=== PATIENT | female | born 1960 | race Caucasian/White ===

== ENCOUNTER 2019-06-03 12:37 | Emergency (ER) | payer MEDICARE, MEDICAID ==
[~2019-06-03] VITALS: Ht 167.6 cm; Wt 80.0 kg
[~2019-06-03 12:37] MED LIST: AMPH15TA2 PO; FLUO20CA39 PO; LORA1TAB PO; MELO-82 PO; TOBOO OP; TRAZ-91 PO
--- NOTE | 2019-06-03 14:00 | NUR ---
pt resting in bed. belonging done, labs and ua sent. med rec completed. pt was at rehab 3 days ago left [place] [facility] she verbalized wanting to harm himself. pt transported to [facility] where she was placed on a 5150. ems than delievered the patient to overflow
--- NOTE | 2019-06-03 14:11 | NUR ---
pt. requested an emesis bag, spit up saliva and is coughing, but no vomiting. bilingual social worker is at bedside.
--- NOTE | 2019-06-03 14:11 | NUR ---
Tyrone robertson in ED - 06/03/19 at 1559 by JIGNESHLIC pt. requested an emesis bag, spit up saliva and is coughing, but no vomiting. renal social worker is at bedside.
[2019-06-03 14:31] LABS: CLARITY,URINE SLIGHTLY CLOUDY (Clear); COLOR,URINE YELLOW (Yellow); GLUCOSE, URINE NEGATIVE (Neg); KETONES,URINE NEGATIVE (Neg); LEUKOCYTE ESTERASE ,URINE NEGATIVE (Neg); NITRITES, URINE NEGATIVE (Neg); OCCULT BLOOD,URINE TRACE-INTACT (Neg); PROTEIN,URINE NEGATIVE (Neg); URINE HCG NEGATIVE (NEG); UROBILINOGEN,URINE 0.2 E.U/dL (0.2-1.0)
[2019-06-03 14:33] LABS: UA COLLECTION TYPE CLN CATCH MIDSTREAM
[2019-06-03 14:38] LABS: URINE AMPHETAMINE SCREEN POSITIVE (Neg); URINE BARBITUATE SCREEN NEGATIVE (Neg); URINE BENZODIAZEPINES SCREEN NEGATIVE (Neg); URINE CANNABINOID SCREEN POSITIVE (Neg); URINE COCAINE SCREEN NEGATIVE (Neg); URINE METHADONE SCREEN NEGATIVE (Neg); URINE OPIATE SCREEN NEGATIVE (Neg); URINE PHENCYCLIDINE SCREEN NEGATIVE (Neg)
[2019-06-03 14:41] LABS: MUCUS STRANDS MODERATE /LPF (Neg); SQUAMOUS EPITHELIAL CELL,UR MANY /LPF (FEW)
[2019-06-03 14:42] LABS: CAL OXALATE CRYSTALS 4+ /HPF (NEGATIVE)
[2019-06-03 14:43] LABS: BACTERIA,URINE 1+ /HPF (Neg); RBC,URINE 0-2 /HPF (0-2); WBC,URINE 0-4 /HPF (0-4)
[2019-06-03 14:44] LABS: YEAST FEW /HPF (NEGATIVE)
[2019-06-03 14:54] LABS: BASOPHILS % (AUTO) 0.8 % (0-1); EOSINOPHILS # (AUTO) 0.1 X10'3 (0-0.9); EOSINOPHILS % (AUTO) 2.5 % (0-6); HEMATOCRIT 41.7 % (35.0-45.0); HEMOGLOBIN 14.2 g/dl (12.0-16.0); LYMPHOCYTES # (AUTO) 2.4 X10'3 (1.1-4.8); LYMPHOCYTES % (AUTO) 49.2 % (21-51); MEAN CORPUSCULAR HEMOGLOBIN 30.4 PG (27.0-31.0); MEAN CORPUSCULAR VOLUME 89.5 FL (78-98); MONOCYTES # (AUTO) 0.3 X10'3 (0-0.9); MONOCYTES % (AUTO) 6.5 % (2-12); PLATELET COUNT 174 X10'3 (140-440); RED BLOOD COUNT 4.66 X10'6 (4.20-5.60); RED CELL DISTRIBUTION WIDTH 13.5 % (11.5-14.5); WHITE BLOOD COUNT 4.8 X10'3 (4.5-11.0)
--- NOTE | 2019-06-03 15:00 | NUR ---
pt resting in bed
[2019-06-03 15:09] LABS: ALANINE AMINOTRANSFERASE 27 U/L (12-78); ALBUMIN 3.1 G/DL (3.4-5.0); ALBUMIN/GLOBULIN RATIO 0.9 (1.1-1.5); ALKALINE PHOSPHATASE 140 IU/L (46-116); ANION GAP 6 (8-16); ASPARTATE AMINO TRANSFERASE 18 U/L (10-37); BILIRUBIN,TOTAL 0.2 MG/DL (0.1-1.0); BLOOD UREA NITROGEN 16 MG/DL (7-18); BUN/CREATININE RATIO 15.5 (6.6-38.0); CALCIUM 8.6 MG/DL (8.5-10.1); CHLORIDE 106 MMOL/L (99-107); CREATININE 1.03 MG/DL (0.40-0.90); GLUCOSE 178 MG/DL (70-104); POTASSIUM 3.2 MMOL/L (3.5-5.1); SODIUM 144 MMOL/L (135-145); TOTAL PROTEIN 6.6 G/DL (6.4-8.2); eGFR 55 ML/MIN
[2019-06-03] MEDS ORDERED: LORA10TA7 PO (15:17)
[2019-06-03] MEDS ORDERED: ATOM25CA6 PO (15:17)
[2019-06-03] MEDS ORDERED: BACL20TA2 PO (15:17)
[2019-06-03] MEDS ORDERED: MELO-102 PO (15:17)
[2019-06-03] MEDS ORDERED: HYDR12.5 PO (15:17)
[2019-06-03] MEDS ORDERED: BUPR150T27 PO (15:17)
[2019-06-03 15:18] LABS: ETHANOL < 0.010 GM/DL (0.0-0.010)
[2019-06-03] MEDS ORDERED: TRAM1TAB7 PO (15:21)
--- NOTE | 2019-06-03 16:00 | NUR ---
pt is resting in bed
[2019-06-03] MEDS ORDERED: Ivermectin 3mg tablet PO SCH ×2 (16:45→16:57)
[2019-06-03] MEDS ORDERED: IVER3TAB2 PO (16:48)
--- NOTE | 2019-06-03 17:00 | NUR ---
pt is resting in her bed. case management friends came to visit with pt. they [facility] to get the [facility] of the pts belongings.
--- NOTE | 2019-06-03 18:30 | NUR ---
PT is resting in bed eating dinner
[2019-06-03] MEDS: HYDROchlorothiazide 12.5mg capsule PO SCH (20:00)
[2019-06-03] MEDS: baclofen 10mg tablet PO SCH (20:06)
[2019-06-03] MEDS: traMADol 50MG tablet PO PRN (20:06)
--- NOTE | 2019-06-03 20:37 | NUR ---
Pt cooperative with 1:1 assessment. PT given HS medication including 50 mg ultram PRN for pain. She refuse the hydrochlorothiazide because, "I will be up peeing all night." PT recieved dose of ivermectin for scabies.
--- NOTE | 2019-06-03 23:03 | NUR ---
Pt is sleepin on back, RR WNL, no signs or symptoms of distress observed.
--- NOTE | 2019-06-04 00:39 | NUR ---
Pt sleeping, lying on her right side with blankets covering to her chouders. RR 14 and unlabored. Sitter and RN within view of Pt AAT.
--- NOTE | 2019-06-04 02:05 | NUR ---
PT is resting quietely on back, no signs or symptoms or distress observed.
[2019-06-04] MEDS ORDERED: potassium Cl 20 mEq SR tablet PO STA (02:26)
[2019-06-04] MEDS ORDERED: Permethrin Cream 60gm TP ONE (03:10)
--- NOTE | 2019-06-04 03:36 | NUR ---
PT woke up requesting Elimite cream for her scabies. "I am so itchy I can't stanbd it. I need the cream plus the pills." Got order for elimite cream 5%, pt applied.
--- NOTE | 2019-06-04 05:04 | NUR ---
PT combed her hair and washed up in the bathroom sink. PT is now sleeping comfortably. RR WNL.
[2019-06-04 05:51] VITALS: BP 152/90
--- NOTE | 2019-06-04 06:25 | NUR ---
Patient sleeping supine. No distress observed. Continue to monitor.
[2019-06-04] MEDS ORDERED: ATOMOXETINE HCL 40 MG CAPSULE PO SCH (08:00)
[2019-06-04] MEDS ORDERED: loratadine 10mg tablet PO SCH (08:00)
[2019-06-04] MEDS ORDERED: buPROPion SR 150mg tablet PO SCH (08:00)
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
[2019-06-04] MEDS: HYDROchlorothiazide 12.5mg capsule PO SCH (08:46)
[2019-06-04] MEDS: baclofen 10mg tablet PO SCH (08:47)
[2019-06-04] MEDS: traMADol 50MG tablet PO PRN (08:51)
--- NOTE | 2019-06-04 10:45 | NUR ---
Patient laying supine with eyes closed. No distress observed. Continue to monitor.
--- NOTE | 2019-06-04 11:10 | NUR ---
Patient's secondary social studies teacher brought in patient's back pack with items and medications. RN took meds to pharmacy for safe keekping. Patient to be given her own medication. Patient tearful when speaking to secondary social studies teacher. Continue to monitor.
[2019-06-04] MEDS ORDERED: guaiFENesin ER 600mg tablet PO SCH (11:20)
[2019-06-04] MEDS ORDERED: MELOXICAM 15MG PO SCH (11:30)
--- NOTE | 2019-06-04 12:55 | NUR ---
Keily came to see patient but patient sleeping/reclining in bed. Keily to come back when patient is awake. Continue to monitor.
--- NOTE | 2019-06-04 14:05 | NUR ---
Patient ate lunch and is now sleeping. No distress observed. Continue to monitor.
--- NOTE | 2019-06-04 15:55 | NUR ---
Patient continues to sleep reclining in bed. No distress observed. RN awoke patient to give her d/c instructions. Patient to go upstairs to [facility]. Patient verbalized understanding.
== END 2019-06-04 15:55 | disposition home or self-care (01) ==
LOC: ER 12:37
DX: R45.851 Suicidal ideations (principal); F15.10 Other stimulant abuse, uncomplicated; I10 Essential (primary) hypertension; F17.200 Nicotine dependence, unspecified, uncomplicated; Z90.710 Acquired absence of both cervix and uterus; Z90.49 Acquired absence of other specified parts of digestive tract; Z59.0 Homelessness; Z88.1 Allergy status to other antibiotic agents; Z88.2 Allergy status to sulfonamides; Z88.8 Allergy status to other drugs, medicaments and biological substances; Z79.899 Other long term (current) drug therapy
CPT/HCPCS: 36415; 80053; 80305; 80320; 81001; 81025; 84132; 84443; 85025; 99285

== ENCOUNTER 2021-01-22 20:48 | Emergency (ER) | payer MEDICARE, MEDICAID ==
[~2021-01-22] VITALS: Ht 162.6 cm; Wt 82.0 kg
[~2021-01-22 20:48] MED LIST changes: -AMPH15TA2 PO; +ATOM25CA6 PO; +BACL20TA2 PO; -FLUO20CA39 PO; +FLUO40CA10 PO; +HYDR-3686 PO; +HYDR12.5 PO; +LORA10TA7 PO; -LORA1TAB PO; +MELO-102 PO; -MELO-82 PO; +ONDA4TAB12 PO; -TOBOO OP; -TRAZ-91 PO
[2021-01-22 21:30] VITALS: BP 161/91
[2021-01-22 22:31] LABS: BASOPHILS # (AUTO) 0.1 X10'3 (0-0.2); BASOPHILS % (AUTO) 0.9 % (0-1); EOSINOPHILS # (AUTO) 0.2 X10'3 (0-0.9); EOSINOPHILS % (AUTO) 1.5 % (0-6); HEMATOCRIT 37.7 % (35.0-45.0); HEMOGLOBIN 12.6 g/dl (12.0-16.0); LYMPHOCYTES # (AUTO) 3.4 X10'3 (1.1-4.8); LYMPHOCYTES % (AUTO) 26.8 % (21-51); MEAN CORPUSCULAR HEMOGLOBIN 28.3 PG (27.0-31.0); MEAN CORPUSCULAR HGB CONC 33.4 g/dL (33.0-36.5); MEAN CORPUSCULAR VOLUME 84.8 FL (78-98); MEAN PLATELET VOLUME 7.9 FL (7.4-10.4); MONOCYTES # (AUTO) 0.8 X10'3 (0-0.9); MONOCYTES % (AUTO) 6.3 % (2-12); NEUTROPHILS # (AUTO) 8.1 X10'3 (1.8-7.7); NEUTROPHILS % (AUTO) 64.5 % (42-75); PLATELET COUNT 324 X10'3 (140-440); RED BLOOD COUNT 4.45 X10'6 (4.20-5.60); RED CELL DISTRIBUTION WIDTH 14.3 % (11.5-14.5); WHITE BLOOD COUNT 12.6 X10'3 (4.5-11.0)
[2021-01-22 22:39] LABS: URINE AMPHETAMINE SCREEN POSITIVE (Neg); URINE BARBITUATE SCREEN NEGATIVE (Neg); URINE BENZODIAZEPINES SCREEN NEGATIVE (Neg); URINE CANNABINOID SCREEN POSITIVE (Neg); URINE COCAINE SCREEN NEGATIVE (Neg); URINE METHADONE SCREEN NEGATIVE (Neg); URINE OPIATE SCREEN NEGATIVE (Neg); URINE PHENCYCLIDINE SCREEN NEGATIVE (Neg)
[2021-01-22 22:43] LABS: ALANINE AMINOTRANSFERASE 31 U/L (12-78); ALBUMIN 3.3 G/DL (3.4-5.0); ALBUMIN/GLOBULIN RATIO 0.6 (1.1-1.5); ALKALINE PHOSPHATASE 127 IU/L (46-116); ANION GAP 11 (8-16); ASPARTATE AMINO TRANSFERASE 19 U/L (10-37); BILIRUBIN,TOTAL 0.5 MG/DL (0.1-1.0); BLOOD UREA NITROGEN 25 MG/DL (7-18); BUN/CREATININE RATIO 19.7 (6.6-38.0); CALCIUM 8.8 MG/DL (8.5-10.1); CHLORIDE 101 MMOL/L (99-107); CREATININE 1.27 MG/DL (0.40-0.90); GLUCOSE 115 MG/DL (70-104); POTASSIUM 3.1 MMOL/L (3.5-5.1); SODIUM 140 MMOL/L (135-145); TOTAL CARBON DIOXIDE 28.4 MMOL/L (24-32); TOTAL PROTEIN 8.4 G/DL (6.4-8.2); eGFR 43 ML/MIN
--- NOTE | 2021-01-22 22:45 | NUR ---
PT TRANSFERED OVER FROM ROOM 17 TO ROOM 11 NO REPORT GIVEN . PT TEARFUL AND NOT WANTING CARE NOTIFIED DILEEP ZARATE
[2021-01-22 22:51] LABS: ETHANOL < 0.010 GM/DL (0.0-0.010)
[2021-01-22] MEDS ORDERED: normal saline 1000ml 1,000 ML IV ONE ×2 (23:00)
[2021-01-22] MEDS ORDERED: POTASSIUM BICARB 20meq eff tab 20 MEQ TABLET.EFF PO ONE ×2 (23:00)
[2021-01-22] MEDS ORDERED: ondansetron/PF 4mg/2ml inj IV ONE (23:00)
[2021-01-22] MEDS ORDERED: LORazepam 2 mg/ml vial IV ONE (23:00)
[2021-01-22] MEDS ORDERED: metoclopramide 5 mg/ml inj IV ONE (23:20)
[2021-01-22 23:21] LABS: CLARITY,URINE CLEAR (Clear); COLOR,URINE YELLOW (Yellow); GLUCOSE, URINE NEGATIVE (Neg); KETONES,URINE NEGATIVE (Neg); LEUKOCYTE ESTERASE ,URINE NEGATIVE (Neg); NITRITES, URINE NEGATIVE (Neg); OCCULT BLOOD,URINE MODERATE (Neg); PROTEIN,URINE NEGATIVE (Neg); UROBILINOGEN,URINE 0.2 E.U/dL (0.2-1.0)
[2021-01-22 23:36] LABS: UA COLLECTION TYPE CLN CATCH MIDSTREAM
[2021-01-22 23:37] LABS: BACTERIA,URINE NONE SEEN /HPF (Neg); RBC,URINE 0-2 /HPF (0-2); SQUAMOUS EPITHELIAL CELL,UR FEW /LPF (FEW); WBC,URINE NONE SEEN /HPF (0-4)
--- NOTE | 2021-01-23 00:35 | NUR ---
PT REFUSED ALL CARE . PT CONTACTED FOR [facility] . PT AWARE THAT SHE IS BEING DISCHARGED HOME PER HER OWN REQUEST DILEEP ZARATE AT BEDSIDE EDUCATING PATIENT ON WHY IT WOULD BE NECCESSARY TO TAKE MEDICATION AND FLUIDS , PT REFUSING TO BE HERE STATES SHE WOULD LIKE TO GO BACK TO HER HOTEL ROOM AND SLEEP . PT TEARFUL AND APOLICETIC . INSTRUCTED PATIENT TO GO TO HER ROOM 128 AND TO SLEEP AND NOT TAKE METH . PT VERBALIZED SHE WILL NOT TAKE METH [facility] AND SLEEP . JULIAN CALLED TO [facility] PT TO THE [facility]
--- NOTE | 2021-01-23 00:46 | NUR ---
[facility] CALLED TO TAKE PT TO THR [facility] ROOM 128
--- NOTE | 2021-01-23 00:47 | NUR ---
PT WHEELCHAIRED TO THE LOBBY TO AWAIT TAXI STABLE
== END 2021-01-23 00:50 ==
LOC: ER 20:49
DX: F43.10 Post-traumatic stress disorder, unspecified (principal); Z20.822 Contact with and (suspected) exposure to COVID-19; G62.9 Polyneuropathy, unspecified; R11.0 Nausea; I10 Essential (primary) hypertension; M19.90 Unspecified osteoarthritis, unspecified site; F15.90 Other stimulant use, unspecified, uncomplicated; Z90.89 Acquired absence of other organs; Z90.710 Acquired absence of both cervix and uterus; Z59.0 Homelessness; Z88.2 Allergy status to sulfonamides; Z88.5 Allergy status to narcotic agent; Z88.1 Allergy status to other antibiotic agents; Z88.8 Allergy status to other drugs, medicaments and biological substances; Z79.899 Other long term (current) drug therapy
CPT/HCPCS: 36415; 80053; 80305; 80320; 81001; 85025; 87635; 99285; C9803

== ENCOUNTER 2021-03-19 17:12 | Emergency (ER) | payer MEDICARE, MEDICAID ==
[~2021-03-19] VITALS: Ht 162.6 cm; Wt 81.8 kg
[~2021-03-19 17:12] MED LIST changes: -ATOM25CA6 PO; -HYDR-3686 PO
[2021-03-19 17:34] VITALS: BP 111/60
[2021-03-19 19:13] LABS: BASOPHILS # (AUTO) 0.1 X10'3 (0-0.2); BASOPHILS % (AUTO) 0.8 % (0-1); EOSINOPHILS # (AUTO) 0.1 X10'3 (0-0.9); EOSINOPHILS % (AUTO) 0.6 % (0-6); HEMATOCRIT 41.5 % (35.0-45.0); HEMOGLOBIN 13.7 g/dl (12.0-16.0); LYMPHOCYTES # (AUTO) 1.2 X10'3 (1.1-4.8); LYMPHOCYTES % (AUTO) 10.8 % (21-51); MEAN CORPUSCULAR HEMOGLOBIN 28.7 PG (27.0-31.0); MEAN CORPUSCULAR HGB CONC 33.1 g/dL (33.0-36.5); MEAN CORPUSCULAR VOLUME 86.6 FL (78-98); MEAN PLATELET VOLUME 7.6 FL (7.4-10.4); MONOCYTES # (AUTO) 0.6 X10'3 (0-0.9); MONOCYTES % (AUTO) 5.2 % (2-12); NEUTROPHILS # (AUTO) 8.8 X10'3 (1.8-7.7); NEUTROPHILS % (AUTO) 82.6 % (42-75); PLATELET COUNT 264 X10'3 (140-440); RED BLOOD COUNT 4.79 X10'6 (4.20-5.60); RED CELL DISTRIBUTION WIDTH 15.6 % (11.5-14.5); WHITE BLOOD COUNT 10.6 X10'3 (4.5-11.0)
[2021-03-19 19:21] LABS: ALBUMIN 3.3 G/DL (3.4-5.0); ANION GAP 10 (8-16); BLOOD UREA NITROGEN 14 MG/DL (7-18); BUN/CREATININE RATIO 12.7 (6.6-38.0); CALCIUM 8.8 MG/DL (8.5-10.1); CHLORIDE 104 MMOL/L (99-107); GLUCOSE 99 MG/DL (70-104); POTASSIUM 3.7 MMOL/L (3.5-5.1); SODIUM 141 MMOL/L (135-145); TOTAL CARBON DIOXIDE 27.4 MMOL/L (24-32); eGFR 51 ML/MIN
== END 2021-03-19 20:25 | disposition home or self-care (01) ==
LOC: ER 17:13
DX: B34.9 Viral infection, unspecified (principal); Z20.822 Contact with and (suspected) exposure to COVID-19; R53.1 Weakness; R11.10 Vomiting, unspecified; R05.9 Cough, unspecified; R06.02 Shortness of breath; R07.89 Other chest pain; R19.7 Diarrhea, unspecified; I10 Essential (primary) hypertension; M19.90 Unspecified osteoarthritis, unspecified site; F17.200 Nicotine dependence, unspecified, uncomplicated; F15.90 Other stimulant use, unspecified, uncomplicated; Z90.89 Acquired absence of other organs; Z90.710 Acquired absence of both cervix and uterus; Z59.00 Homelessness unspecified; Z88.2 Allergy status to sulfonamides; Z88.5 Allergy status to narcotic agent; Z88.1 Allergy status to other antibiotic agents; Z88.6 Allergy status to analgesic agent; Z88.8 Allergy status to other drugs, medicaments and biological substances; Z79.899 Other long term (current) drug therapy
CPT/HCPCS: 36415; 80048; 84145; 85025; 87502; 87503; 87635; 99283; C9803

== ENCOUNTER 2023-11-05 14:02 | Emergency (ER) | payer BC, MEDICAID ==
[~2023-11-05] VITALS: Ht 162.6 cm; Wt 84.1 kg
[~2023-11-05 14:02] MED LIST changes: +ATOR20TA66 PO; +BACL20TA11 PO; -BACL20TA2 PO; +HYDR-3686 PO; -HYDR12.5 PO; +METO10TA3 PO; -ONDA4TAB12 PO; +TRAZ-251 PO
[2023-11-05 14:06] VITALS: TEMP 98.4
[2023-11-05] MEDS: diazepam inj 5 MG/ML inj. IV ONE (14:20)
[2023-11-05] MEDS: metoclopramide 5 mg/ml inj IV ONE (14:20)
[2023-11-05] MEDS: normal saline 1000ml 1,000 ML IV ONE (14:20)
[2023-11-05] MEDS: metoclopramide 10mg/10 ml UD oral solution PO ONE (15:25)
[2023-11-05] MEDS: diazepam 5mg tablet PO ONE (15:30)
[2023-11-05] MEDS: ethyl chloride 103.5ml spray TP ONE (15:32)
[2023-11-05 16:39] VITALS: BP 117/74; PULSE 79; RESP 17; O2SAT 93
== END 2023-11-05 19:20 | disposition home or self-care (01) ==
LOC: ER 14:02
DX: R10.11 Right upper quadrant pain (principal); R11.2 Nausea with vomiting, unspecified; R51.9 Headache, unspecified; I10 Essential (primary) hypertension; M19.90 Unspecified osteoarthritis, unspecified site; Z90.49 Acquired absence of other specified parts of digestive tract; Z90.710 Acquired absence of both cervix and uterus; F17.210 Nicotine dependence, cigarettes, uncomplicated; F15.90 Other stimulant use, unspecified, uncomplicated; Z59.00 Homelessness unspecified; Z88.2 Allergy status to sulfonamides; Z88.8 Allergy status to other drugs, medicaments and biological substances; Z79.899 Other long term (current) drug therapy
CPT/HCPCS: 71045; 93005; 99284; J8597

== ENCOUNTER 2024-04-03 14:20 | Emergency (ER) | payer BC, MEDICAID ==
[~2024-04-03] VITALS: Ht 162.6 cm; Wt 79.0 kg
[2024-04-03 15:06] VITALS: BP 141/69; PULSE 66; TEMP 97.8; O2SAT 96
[2024-04-03] MEDS ORDERED: CLIN-97 PO (15:48)
[2024-04-03 15:59] VITALS: RESP 16
== END 2024-04-03 15:59 | disposition home or self-care (01) ==
LOC: ER 14:20
DX: K04.7 Periapical abscess without sinus (principal); L03.211 Cellulitis of face; I10 Essential (primary) hypertension; M19.90 Unspecified osteoarthritis, unspecified site; Z88.2 Allergy status to sulfonamides; Z88.5 Allergy status to narcotic agent; Z88.6 Allergy status to analgesic agent; Z88.8 Allergy status to other drugs, medicaments and biological substances; Z59.00 Homelessness unspecified; Z90.49 Acquired absence of other specified parts of digestive tract; Z90.710 Acquired absence of both cervix and uterus
CPT/HCPCS: 99283

== ENCOUNTER 2025-05-05 20:35 | Inpatient (IN) | payer BC, MEDICAID ==
[~2025-05-05] VITALS: Ht 165.1 cm; Wt 78.5 kg
[~2025-05-05 20:35] MED LIST changes: +ATOR10TA70 PO; -ATOR20TA66 PO; -BACL20TA11 PO; +FLUO40CA PO; -FLUO40CA10 PO; -HYDR-3686 PO; +HYDR25TA5 PO; -METO10TA3 PO; -TRAZ-251 PO
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
[2025-05-05] MEDS: haloperidol lactate 5mg/ml inj IM ONE (21:27)
[2025-05-05] MEDS: midazolam 1 mg/ML 2ml injection IM ONE (21:27)
[2025-05-05 21:37] LABS: MEAN PLATELET VOLUME 8.9 FL (7.4-10.4); RED CELL DISTRIBUTION WIDTH 13.6 % (11.5-14.5)
[2025-05-05 21:51] LABS: CREATININE 1.08 MG/DL (0.40-0.90); TOTAL CARBON DIOXIDE 31.5 MMOL/L (24-32); eCRCL 48 ML/MIN; eGFR 51 ML/MIN
[2025-05-05] MEDS: potassium Cl 20 mEq SR tablet PO STA (22:33)
[2025-05-06] MEDS ORDERED: MIDAZolam 1 MG/ML 5ML VIAL IM ONE (01:25)
[2025-05-06] MEDS: haloperidol lactate 5mg/ml inj IM ONE (01:52)
[2025-05-06] MEDS: midazolam 1 mg/ML 2ml injection IM ONE (01:52)
[2025-05-06 08:59] LABS: LEUKOCYTE ESTERASE ,URINE NEGATIVE (Neg); NITRITES, URINE NEGATIVE (Neg); OCCULT BLOOD,URINE NEGATIVE (Neg)
[2025-05-06 09:01] LABS: UA COLLECTION TYPE NON-SPECIFIED
[2025-05-06 09:15] LABS: URINE BENZODIAZEPINES SCREEN POSITIVE (Neg); URINE CANNABINOID SCREEN POSITIVE (Neg); URINE COCAINE SCREEN NEGATIVE (Neg); URINE OPIATE SCREEN NEGATIVE (Neg)
[2025-05-06 11:33] LABS: URINE AMPHETAMINE SCREEN NEGATIVE (Neg); URINE METHADONE SCREEN NEGATIVE (Neg)
[2025-05-06 11:34] LABS: URINE BARBITUATE SCREEN NEGATIVE (Neg); URINE PHENCYCLIDINE SCREEN NEGATIVE (Neg)
[2025-05-06] MEDS: ondansetron 4mg rapidly disintigrating tab PO ONE (19:35)
[2025-05-07 00:30] VITALS: RESP 16; O2SAT 96
[2025-05-07 07:00] VITALS: RESP 16; O2SAT 92
[2025-05-07 07:30] VITALS: BP 132/73; PULSE 67; RESP 16; TEMP 97.8; O2SAT 92
[2025-05-07] MEDS: MELOXICAM 7.5 MG TABLET PO SCH (08:18)
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
[2025-05-07] MEDS ORDERED: ondansetron 4mg/5ml UD cup PO PRN (18:20)
--- NOTE | 2025-05-07 18:32 | HISTORY AND PHYSICAL-Residence ---
History & Physical Providers to CC Resident Creating Document: SHANICE NGUYEN RES ~ History of Present Illness Primary Medical Doctor: Tello @ [facility] Nella Borrego Reason for Admit\Complaint: [facility] History of Present Illness This 64-year-old female is admitted to [facility] for PTSD, MDD, methamphetamine use disorder, tobacco use disorder and suicidal ideation Patient denies any chest pain, shortness of breath, dizziness, dysuria, constipation or diarrhea or syncope. Stated that she has nausea and has been diagnosed with achalasia earlier and takes Reglan at home. Denies any vomiting or abdominal pain. Mentioned that she got an EGD done here this year by Dr. Patel. Has difficulty swallowing for many years and eats small bites. Denies any other concerns Allergies: Coded Allergies: Sulfa (Sulfonamide Antibiotics) (Unverified Allergy, Unknown, 06/04/19) codeine (Unverified Allergy, Unknown, HIVES, 06/04/19) erythromycin base (Unverified Allergy, Unknown, 06/04/19) gabapentin (Verified Allergy, Unknown, 06/04/19) verified with daughter meperidine HCl (Unverified Allergy, Unknown, 06/04/19) naproxen (Unverified Allergy, Unknown, BREATHING PROBLEMS, 06/04/19) TOLERATES TORADOL risperidone (Verified Allergy, Unknown, 06/04/19) venlafaxine (Verified Allergy, Unknown, BREATHING, 06/04/19) aripiprazole (Verified Adverse Reaction, Unknown, HALLUCINATIONS, 05/07/25) diphenhydramine (Verified Adverse Reaction, Unknown, HALLUCINATIONS, 05/07/25) duloxetine (Verified Adverse Reaction, Unknown, HALLUCINATIONS, 05/07/25) pregabalin (Verified Adverse Reaction, Unknown, SUCICIDAL, 05/07/25) Uncoded Allergies: hydroxizine (Allergy, Mild, 06/22/23) hives and fever Home Medications Home Medications Active Reported Meloxicam 15 Mg Tablet 1 Tab PO DAILY 30 Days Fluoxetine Hcl (Fluoxetine HCl) 40 Mg Capsule 1 Cap PO DAILY 30 Days Atorvastatin Calcium 10 Mg Tablet 1 Tab PO DAILY Past Medical History Past Medical History Achalasia, hyperlipidemia, arthritis, bilateral hammertoes Past Surgical History Surgical History Comment Appendectomy, partial hysterectomy, neck fusion C3-C5, left total knee replacement, tonsillectomy Family History Family History: FH: cancer Past Social History Social History Comment Has been smoking four cigarettes per day for the last two years. Has been drinking four beers per week for the last two years. Snorts methamphetamine and smokes marijuana. Denies any IV drug abuse Smoking: Cigarettes Alcohol Use: None Drug Use: Methamphetamine Lives In: Homeless ROS ROS Constitutional: No fever, chills, dizziness, weakness, weight gain or loss Eyes: No pain, erythema, discharge, blurring of vision ENT: No sore throat, epistaxis, tinnitus Cardiovascular: No chest pain, chest pressure, chest discomfort, palpitations, syncope, lower extremity edema, paroxysmal nocturnal dyspnea Respiratory: No shortness of breath, cough, hemoptysis Gastrointestinal: Nausea present. Normal appetite. No vomiting, diarrhea, constipation, hematemesis, abdominal pain, bloating, melena or fresh blood Genitourinary: No frequency, urgency, nocturia, hematuria or dysuria Musculoskeletal: No arthralgias or myalgias Integumentary: No change in skin, hair, nails. No swelling, bruising, abrasions Neurologic: No headache, neck pain, numbness or tingling of the extremities, weakness Psychiatric: No delusions, depression, loss of interest in normal activity or change in sleep pattern, hallucinations, suicidal ideations Endocrine: No fatigue, weakness, polydipsia, polyuria, change in appetite, heat or cold intolerance, sweating, dry skin Hematological: No bleeding, petechiae, bruising Allergies: No asthma or urticaria Exam Vitals: Vital Signs Date Time Temp Pulse Resp B/P (MAP) Pulse Ox O2 Delivery O2 Flow Rate FiO2 05/07/25 07:30 97.8 67 16 132/73 (92) 92 Room Air 05/06/25 19:37 0 General: Alert and oriented x4 HEENT: Normocephalic and atraumatic. Pupils equal round reactive to light and accommodation. Extraocular movements intact. Oral and nasal mucosa moist Neck: Trachea is in midline. No masses or JVD Chest: Bilateral normal breath sounds. No crackles, rhonchi or wheezes Cardiovascular: Regular rate and rhythm. S1-S2 normal. No rubs or murmurs Abdomen: Soft, nontender nondistended. Bowel sounds present Extremities: No cyanosis, clubbing or edema. Bilateral hammertoes-1st toes. Bilateral dystrophy of nails present Central Nervous System: No gross sensory or motor deficits Skin: Warm and dry Diagnostic Data Last Recorded Lab Results: 05/05/25210005/05/252100 Additional Plan Achalasia Denies any acute worsening of dysphagia - stable for years Eats small bites Has nausea-started reglan 5mg po q6h prn Also as fluoxetine. Close monitoring for any serotonin syndrome Required out patient GI f/u Requires in patient GI consult if patient develops significant dysphagia Hypokalemia Ordered K-Dur 40 mEq p.o. once Hyperlipidemia Continue home medication Lipitor 10 mg p.o. daily Lipid panel ordered MDD, suicidal ideation, tobacco abuse, meth abuse Continue management per the Psychiatry Urine tox positive for benzodiazepine and cannabinoids Shanice Nguyen MD Internal Medicine Resident, PGY 3 Date of Service: May 07, 2025 Billing Provider: EVA GREENWOOD MD Common Visit Codes: [id number] INP/OBS CARE (MOD) SHANICE NGUYEN RES May 07, 2025 18:32 EVA GREENWOOD MD May 08, 2025 12:34
[2025-05-07 19:00] VITALS: RESP 14; O2SAT 93
[2025-05-07] MEDS: potassium Cl 20 mEq SR tablet PO STA (19:19)
[2025-05-07 20:00] VITALS: BP 94/44; PULSE 68; RESP 14; TEMP 97.4; O2SAT 93
[2025-05-08 07:00] VITALS: BP 92/54; PULSE 64; RESP 16; TEMP 98; O2SAT 95
[2025-05-08] MEDS: metoclopramide 10mg/10 ml UD oral solution PO PRN (07:45)
[2025-05-08 08:00] VITALS: RESP 16; O2SAT 95
[2025-05-08 11:35] LABS: CHOL/HDL RATIO 3.3 (0.00-4.99); LDL CHOLESTEROL 71 MG/DL (50-100)
[2025-05-08 19:00] VITALS: RESP 17; O2SAT 92
[2025-05-08 20:00] VITALS: BP 107/60; PULSE 69; RESP 17; TEMP 97.5; O2SAT 95
--- NOTE | 2025-05-08 22:53 | PROGRESS NOTE ---
Progress Note Dictate Providers to CC ~ Progress Note: Admission date: 05/06/25 Admission information: Admitted on 5150 for danger to self endorsing thoughts of suicide, no specific plan, describes thoughts as intrusive and that she ingested, "what ever substances I could get" in attempt to make all the thoughts and feelings go away. Utox positive for methamphetamine, methadone, benzodiazepines, PCP, Barbiturates, THC. Engagement in high risk behaviors has been increasing in the past three weeks which was precipitated by attending her friends . Not future oriented, hopelessness and no motivation to seek support. Experiencing with auditory and visual hallucinations, paranoia. States the meth use worsened the depression and lead to suicidality. Denies current thoughts' of suicide, "I have too much to live for". Has been experiencing flash backs, intrusive memories of past trauma, nightmares, AH, paranoia, becoming angry and agitated. Denies AVH currently. Endorses anxiety daily, endorses trouble controlling the worry, physical symptoms- will feel shaky, endorses life long panic attacks. Interval History: Withdrawn to room, sleeping through the whole day, got up for meals, no hygiene or groups. Not interested in engaging in an interview today. Review of Psychiatric Symptoms: Mood: depressed Suicide/self-harm: suicidal Sleep: hypersomnia 10+ hours Appetite: adequate eating TID Energy: fatigued Anxiety: low Irritability: present Homicidal/Anger: denies Hallucinations/Paranoia: denies Trauma symptoms: endorses nightmares Symptoms related to substance withdrawal: hypersomnia r/t withdrawing from meth Psychiatric Medications Side Effects: Denies No evidence of TD, EPS AIMs: 0 Mental Status Evaluation General Appearance: lying in bed, poorly groomed, Eye contact: poor Demeanor: cooperative Orientation: to person, place, time, situation Speech: Appropriate rate/rhythm/volume Psychomotor Activity: within normal range Abnormal Body Movements: none observed Mood: depressed Affect: flat Suicidality: suicidal Homicidally: denies Thought content: consistent with social norms Thought process: goal-directed Thought perceptions: no perceptual disorder noted Memory: appears intact Attention: appears attentive Insight: fair Judgment: good Current Medical Problems: HTN Arthritis Appendectomy Hysterectomy Review of symptoms Denies malaise, other flu like symptoms Denies falls, fatigue, weakness, confusion, dizziness, memory loss Denies tingling/numbness, tremor Denies SOB, chest pain, palpitations, fainting Denies nausea, diarrhea, constipation All other systems reviewed negative Medical History TBI Hx: denies Seizure Hx: denies ROBERTA Hx: denies Diagnoses. PTSD MDD, recurrent, severe Methamphetamine use disorder Tobacco use disorder Suicidal Assessment Present for further evaluation and treatment for PTSD, MDD, methamphetamine use disorder, tobacco use disorder. It appears that attending her friends three weeks ago triggered a return of acute PTSD symptoms- flashbacks, nightmares, panic, depression, suicidal ideation which was promoted and worsened by meth use. She requests to continue her current dose of fluoxetine. Will start trial of clonidine anxiety. 05/08: hypersomnia, remains depressed, suicidal. Spent the majority of the day in bed, minimal engagement in interview. Reported to SW that she wanted to discharge hospital and return to meth use. 5250: for danger to self, endorses suicidal ideation for the past three weeks, shared with ED clinician that she took a multitude of substances with aim to make all the thoughts and feelings go away. Plan Start 5250 for danger to self Start clonidine 0.1 mg po TID prn for anxiety Continue Fluoxetine 40 mg po qd Maintenance therapy for tobacco use disorder: schedule nicotine patch, prn nicotine lozenges Continue Q15 min checks Continue Groups/Milieu Engagement Estimated length of stay: 5-7 days Discharge Plan: Back to current living situation- lives with an older couple Re-establish with psychiatric outpatient services- including therapy Discussed risks, including possible adverse effects, and benefits of treatment recommendations including no treatment. Voice recognition software may have been used to dictate this note. There may be errors due to use of such software. Reporting of serious errors is appreciated. Antibiotic Ordered?: N/A Objective Vitals Vital Signs Date Time Temp Pulse Resp B/P (MAP) Pulse Ox O2 Delivery O2 Flow Rate FiO2 05/08/25 08:00 16 95 Room Air 05/08/25 07:00 98.0 64 92/54 (67) 05/06/25 19:37 0 Lab Results: 05/05/25210005/05/252100 Problem\\Assessment\\Plan Problems/Diagnosis: (1) Suicidal ideation (2) Methamphetamine abuse (3) MDD (major depressive disorder), recurrent episode, severe (4) PTSD (post-traumatic stress disorder) CODING VISIT-PSYCHIATRY Date of Service: May 08, 2025 Billing Provider: ALEX PÉREZ DNP Psych Common Visit Codes: [id number] INP/OBS CARE(Mod) ALEX PÉREZ DNP May 08, 2025 22:53
[2025-05-09 08:00] VITALS: BP 115/65; PULSE 56; RESP 14; TEMP 98.1; O2SAT 94
[2025-05-09 11:26] VITALS: BP 115/65; PULSE 56; RESP 14; TEMP 98.1; O2SAT 94
[2025-05-09] MEDS: metoclopramide 10mg/10 ml UD oral solution PO SCH (17:06)
--- NOTE | 2025-05-09 17:32 | PROGRESS NOTE ---
Progress Note Dictate Providers to CC ~ Progress Note: Admission date: 05/06/25 Admission information: Admitted on 5150 for danger to self endorsing thoughts of suicide, no specific plan, describes thoughts as intrusive and that she ingested, "what ever substances I could get" in attempt to make all the thoughts and feelings go away. Utox positive for methamphetamine, methadone, benzodiazepines, PCP, Barbiturates, THC. Engagement in high risk behaviors has been increasing in the past three weeks which was precipitated by attending her friends . Not future oriented, hopelessness and no motivation to seek support. Experiencing with auditory and visual hallucinations, paranoia. States the meth use worsened the depression and lead to suicidality. Denies current thoughts' of suicide, "I have too much to live for". Has been experiencing flash backs, intrusive memories of past trauma, nightmares, AH, paranoia, becoming angry and agitated. Denies AVH currently. Endorses anxiety daily, endorses trouble controlling the worry, physical symptoms- will feel shaky, endorses life long panic attacks. Interval History: Increased activity, still significant day time napping, cooperative with nursing care Review of Psychiatric Symptoms: Mood: depressed Suicide/self-harm: suicidal (guarded) Sleep: hypersomnia 10+ hours Appetite: adequate eating TID Energy: fatigued Anxiety: high "because its anxiety" Irritability: present Homicidal/Anger: denies Hallucinations/Paranoia: denies Trauma symptoms: endorses nightmares Symptoms related to substance withdrawal: hypersomnia r/t withdrawing from meth Psychiatric Medications Side Effects: Denies No evidence of TD, EPS AIMs: 0 Mental Status Evaluation General Appearance: lying in bed, poorly groomed, Eye contact: poor Demeanor: cooperative Orientation: to person, place, time, situation Speech: Appropriate rate/rhythm/volume Psychomotor Activity: within normal range Abnormal Body Movements: none observed Mood: depressed Affect: flat Suicidality: suicidal Homicidally: denies Thought content: consistent with social norms Thought process: goal-directed Thought perceptions: no perceptual disorder noted Memory: appears intact Attention: appears attentive Insight: fair Judgment: good Current Medical Problems: HTN Arthritis Appendectomy Hysterectomy Review of symptoms Denies malaise, other flu like symptoms Denies falls, fatigue, weakness, confusion, dizziness, memory loss Denies tingling/numbness, tremor Denies SOB, chest pain, palpitations, fainting Denies nausea, diarrhea, constipation All other systems reviewed negative Medical History TBI Hx: denies Seizure Hx: denies ROBERTA Hx: denies Diagnoses. PTSD MDD, recurrent, severe Methamphetamine use disorder Tobacco use disorder Suicidal Assessment Present for further evaluation and treatment for PTSD, MDD, methamphetamine use disorder, tobacco use disorder. It appears that attending her friends three weeks ago triggered a return of acute PTSD symptoms- flashbacks, nightmares, panic, depression, suicidal ideation which was promoted and worsened by meth use. She requests to continue her current dose of fluoxetine. Will continue trial of clonidine for anxiety. 05/09: increased daytime activity, guarded about symptoms, still significant vegetative symptoms of depression including poor energy, lack of motivation, interest. Minimal engagement in interview. 5250: for danger to self, endorses suicidal ideation for the past three weeks, shared with ED clinician that she took a multitude of substances with aim to make all the thoughts and feelings go away. Reported to on 05/08 that she wanted to discharge hospital and return to meth use. Plan Continue clonidine 0.1 mg po TID prn for anxiety (consider scheduling med) Fluoxetine 40 mg po qd (consider increasing) Maintenance therapy for tobacco use disorder: schedule nicotine patch, prn nicotine lozenges Continue Q15 min checks Continue Groups/Milieu Engagement Estimated length of stay: 5-7 days Discharge Plan: Back to current living situation- lives with an older couple Re-establish with psychiatric outpatient services- including therapy Discussed risks, including possible adverse effects, and benefits of treatment recommendations including no treatment. Voice recognition software may have been used to dictate this note. There may be errors due to use of such software. Reporting of serious errors is appreciated. Antibiotic Ordered?: N/A Objective Vitals Vital Signs Date Time Temp Pulse Resp B/P (MAP) Pulse Ox O2 Delivery O2 Flow Rate FiO2 05/09/25 11:26 98.1 56 14 115/65 (82) 94 Room Air 05/06/25 19:37 0 Lab Results: 05/05/25210005/05/252100 Problem\\Assessment\\Plan Problems/Diagnosis: (1) Suicidal ideation (2) Methamphetamine abuse (3) MDD (major depressive disorder), recurrent episode, severe (4) PTSD (post-traumatic stress disorder) CODING VISIT-PSYCHIATRY Date of Service: May 09, 2025 Billing Provider: ALEX PÉREZ DNP Psych Common Visit Codes: [id number] INP/OBS CARE(Mod) ALEX PÉREZ DNP May 09, 2025 17:32
--- NOTE | 2025-05-09 18:44 | PROGRESS NOTE- Residence ---
Progress Note - Resident Providers to CC Resident Creating Document: HUGO MACKENZIE RES ~ Antibiotic Timeout Antibiotic Ordered?: No Subjective Patient was seen and examined bedside. She states that she has chronic difficulty in swallowing and she takes small bites. She reports nausea and vomiting, which has mildly improved after Reglan. She denies fever, chills, abdominal pain, or any other medical complaints. She got EGD done this year by Dr. Patel. Objective Vital Signs Date Time Temp Pulse Resp B/P (MAP) Pulse Ox O2 Delivery O2 Flow Rate FiO2 05/09/25 11:26 98.1 56 14 115/65 (82) 94 Room Air 05/06/25 19:37 0 Result Diagram: 05/05/25210005/05/252100 Awake , alert, and oriented x4, resting comfortably in the bed, in no acute distress HEENT: Atraumatic, normocephalic, EOMI, anicteric sclera ; pink conjunctiva, moist mucous membranes Neck: Trachea midline. Supple, full range of motion, no JVD Cardiac: Regular rhythm, regular rate with no murmurs all over the precordium. Respiratory: Equal breath sounds bilaterally, no tachypnea, no wheezing ,rub or rales, Chest wall is symmetric and without deformity. Gastrointestinal: Abdomen symmetric, non-distended, soft, non-tender, normal bowel sounds x4 quadrant, normoactive, no hepatosplenomegaly Musculoskeletal: No pedal edema, no cyanosis, Bilateral 1st hammer toes, Bilateral dystrophy of nails present Neurological: Speech is clear, alert, and oriented x 4. No motor or sensory deficit, deep tendon reflexes normal, cerebellar intact. Cranial nerves II-XII intact. Skin: Warm and dry Assessment Assessment 64-year-old female admitted to [facility] for management of PTSD, MDD, methamphetamine use disorder, tobacco use disorder and suicidal ideation. Plan Plan Achalasia She states that she has chronic dysphagia, which has been stable Eats small bites Continue reglan 5mg po q6h prn Patient takes fluoxetine. Monitor for serotonin syndrome She got EGD this year by Dr. Patel Required out patient GI f/u Requires in patient GI consult if patient develops significant dysphagia Hypokalemia Potassium was 3.1 on 05/05/25 and was given K-Dur 40 mEq p.o. once Monitor potassium Hyperlipidemia Continue home medication Lipitor 10 mg p.o. daily LDL is 71 MDD, suicidal ideation, tobacco abuse, meth abuse Continue management per the Psychiatry Disposition: Continue management as per psychiatric, hospitalist team will continue to follow up the patient. Hugo Mackenzie MD Internal Medicine resident, PGY-1 Date of Service: May 09, 2025 Billing Provider: WILMA CLIFFORD MD,HUGO, RES May 09, 2025 18:44
[2025-05-09 19:00] VITALS: RESP 16; O2SAT 97
[2025-05-09 20:00] VITALS: BP 106/59; PULSE 57; RESP 16; TEMP 97.5; O2SAT 97
[2025-05-09 20:02] LABS: CREATININE 1.28 MG/DL (0.40-0.90); TOTAL CARBON DIOXIDE 32.7 MMOL/L (24-32); eCRCL 40 ML/MIN; eGFR 42 ML/MIN
[2025-05-10] MEDS ORDERED: mag hydrox/Alum hydrox/simeth 30ml oral suspension PO PRN (06:45)
[2025-05-10] MEDS ORDERED: loperamide 2mg capsule PO PRN (06:45)
[2025-05-10] MEDS ORDERED: magnesium hydroxide 30ml (MOM) UD suspension PO PRN (06:45)
[2025-05-10] MEDS: NICOTINE POLACRILEX 2 MG LOZENGE BC PRN (06:56)
[2025-05-10 07:30] VITALS: BP 119/75; PULSE 68; RESP 16; TEMP 98; O2SAT 94
[2025-05-10] MEDS: nicotine 21mg patch - 24 hr TD SCH (08:40)
[2025-05-10 19:00] VITALS: RESP 18; O2SAT 97
--- NOTE | 2025-05-10 19:29 | PROGRESS NOTE ---
Progress Note Dictate Providers to CC ~ Antibiotic Ordered?: N/A Objective Vitals Vital Signs Date Time Temp Pulse Resp B/P (MAP) Pulse Ox O2 Delivery O2 Flow Rate FiO2 05/10/25 19:04 18 05/10/25 07:30 94 Room Air 0.0 05/10/25 07:30 98.0 68 119/75 (90) Lab Results: 05/09/251940 Psychiatrist's Progress Note Date of Service: May 10, 2025 Time of Evaluation: 10:35 Notes Admission information: Admitted on 5149 for danger to self endorsing thoughts of suicide, no specific plan, describes thoughts as intrusive and that she ingested, "what ever substances I could get" in attempt to make all the thoughts and feelings go away. Utox positive for methamphetamine, methadone, benzodiazepines, PCP, Barbiturates, THC. Engagement in high risk behaviors has been increasing in the past three weeks which was precipitated by attending her friends . Not future oriented, hopelessness and no motivation to seek support. Experiencing with auditory and visual hallucinations, paranoia. States the meth use worsened the depression and lead to suicidality. Denies current thoughts' of suicide, "I have too much to live for". Has been experiencing flash backs, intrusive memories of past trauma, nightmares, AH, paranoia, becoming angry and agitated. Denies AVH currently. Endorses anxiety daily, endorses trouble controlling the worry, physical symptoms- will feel shaky, endorses life long panic attack Patient's Status and Progress Review of Psychiatric Symptoms: Mood: depressed/anxious Suicide/self-harm: suicidal (guarded) Sleep: hypersomnia 10+ hours Appetite: adequate eating TID Energy: fatigued/low Anxiety: endorses high anxiety Irritability: fluctuates Homicidal/Anger: denies Hallucinations/Paranoia: denies Trauma symptoms: endorses nightmares Symptoms related to substance withdrawal: hypersomnia r/t withdrawing from meth Psychiatric Medications Side Effects: Denies No evidence of TD, EPS AIMs: 0 Appearnace: Disheveled Speech: Tangential, Pressured Eye Contact: Intense Motor Activity: Restless Affect: Labile Mood: Anxious, Depressed Orientation Impairment: None Memory Impairment: None Attention: Distracted Comments Intellect: average Suicidality: Ideation Homicidality: None Delusions: None Behavior: Guarded, Hyperactive Insight: Poor Judgment: Poor Assessment Need for hospitalization: Present for further evaluation and treatment for PTSD, MDD, methamphetamine use disorder, tobacco use disorder. 5250: for danger to self, endorses suicidal ideation for the past three weeks, shared with ED clinician that she took a multitude of substances with aim to make all the thoughts and feelings go away. Reported to SW on 05/08 that she wanted to discharge hospital and return to meth use. Inpatient hospitalization is recommended to ensure safety, provide stabilization, and initiate intensive treatment with ongoing monitoring for SI. 05/10 Upon assessment today, patient is exhibiting increased daytime activity, hyperactivity noted, rapid and pressured speech, disorganized thinking, still endorses depression symptoms including poor energy, lack of motivation, interest. Complaint with medications. Plan Diagnoses. PTSD MDD, recurrent, severe Methamphetamine use disorder Tobacco use disorder Suicidal Plan Continue clonidine 0.1 mg po TID prn for anxiety (consider scheduling med) Fluoxetine 40 mg po qd (consider increasing) Maintenance therapy for tobacco use disorder: schedule nicotine patch, prn nicotine lozenges Ativan 2mg (one time dose for agitation)- will reassess in am Patient encouraged to engage in activities/therapy, precautions continued, emergency procedures, treatment options and side effects to medications reviewed. Continue Q15 min checks Continue Groups/Milieu Engagement Estimated length of stay: 5-7 days Discharge Plan: Back to current living situation- lives with an older couple Re-establish with psychiatric outpatient services- including therapy CODING VISIT-PSYCHIATRY Date of Service: May 10, 2025 Billing Provider: GERMAN ORANTES NP Psych Common Visit Codes: [id number] INP/OBS CARE(Mod) GERMAN ORANTES NP May 10, 2025 19:29
[2025-05-10 20:00] VITALS: BP 109/75; PULSE 70; RESP 18; TEMP 98.2; O2SAT 97
[2025-05-11 07:00] VITALS: BP 118/71; PULSE 81; RESP 16; TEMP 97.8; O2SAT 95
--- NOTE | 2025-05-11 09:55 | PROGRESS NOTE ---
Daily Progress Note Providers to CC ~ Antibiotic Timeout Antibiotic Ordered?: No Subjective This is the hospitalist progress note on patients hospitalized at [facility] [place] [facility]. The patient has complains of eczema of her feet which started after her son . The patient is states that Eucerin cream helps and resolves the issue she has used steroid creams in the past which help however once the steroid cream is discontinued her eczema comes back if not worse than prior to using steroid creams. The patient has not no other complaints however is requesting to be discharged which I did inform her that is up to the psychiatrist. Objective Vital Signs Date Time Temp Pulse Resp B/P (MAP) Pulse Ox O2 Delivery O2 Flow Rate FiO2 05/11/25 07:00 97.8 81 16 118/71 (87) 95 Room Air 05/10/25 07:30 0.0 Result Diagram: 05/09/251940 Gen. No acute distress alert and oriented Lungs clear to ascultation bilaterally, no wheezes rales or rhonchi appreciated Heart normal sinus rhythm no murmurs rubs or clicks noted Abdomen soft nontender bowel sounds are normoactive Lower extremities no clubbing cyanosis, nor edema appreciated bilaterally Skin: Plantar surface of the feet bilaterally significant erythema with cracking and scaling of the skin Problem\Assessment\Plan Problems/Diagnosis: (1) MDD (major depressive disorder), recurrent episode, severe MDD, suicidal ideation, tobacco abuse, meth abuse Continue management per the Psychiatry Skin rash the plantar surface of the feet bilaterally (possible eczema) Eucerin cream t.i.d. to the plantar surface of the feet bilaterally. Achalasia She states that she has chronic dysphagia, which has been stable Eats small bites Continue reglan 5mg po q6h prn Patient takes fluoxetine. Monitor for serotonin syndrome She got EGD this year by Dr. Patel Required out patient GI f/u Requires in patient GI consult if patient develops significant dysphagia Hypokalemia Potassium was 3.1 on 05/05/25 and was given K-Dur 40 mEq p.o. once Monitor potassium Hyperlipidemia Continue home medication Lipitor 10 mg p.o. daily LDL is 71 Date of Service: May 11, 2025 Billing Provider: CASS JAMES DO Common Visit Codes: [id number] INP/OBS CARE(MOD) CASS JAMES DO May 11, 2025 09:55
[2025-05-11 11:16] LABS: LEUKOCYTE ESTERASE ,URINE NEGATIVE (Neg); NITRITES, URINE NEGATIVE (Neg); OCCULT BLOOD,URINE TRACE-INTACT (Neg)
[2025-05-11 11:17] LABS: UA COLLECTION TYPE NON-SPECIFIED
[2025-05-11 11:35] LABS: MUCUS STRANDS NONE SEEN /LPF (Neg); SQUAMOUS EPITHELIAL CELL,UR FEW /LPF (FEW)
[2025-05-11] MEDS: mineral oil/petrolatum, white cream 113gm jar TP SCH (13:17)
--- NOTE | 2025-05-11 13:20 | PROGRESS NOTE ---
Progress Note Dictate Providers to CC ~ Antibiotic Ordered?: N/A Objective Vitals Vital Signs Date Time Temp Pulse Resp B/P (MAP) Pulse Ox O2 Delivery O2 Flow Rate FiO2 05/11/25 07:00 16 95 Room Air 0.0 05/11/25 07:00 97.8 81 118/71 (87) Lab Results: 05/09/251940 Psychiatrist's Progress Note Date of Service: May 11, 2025 Time of Evaluation: 10:30 Notes Admission information: Admitted on 5149 for danger to self endorsing thoughts of suicide, no specific plan, describes thoughts as intrusive and that she ingested, "what ever substances I could get" in attempt to make all the thoughts and feelings go away. Utox positive for methamphetamine, methadone, benzodiazepines, PCP, Barbiturates, THC. Engagement in high risk behaviors has been increasing in the past three weeks which was precipitated by attending her friends . Not future oriented, hopelessness and no motivation to seek support. Experiencing with auditory and visual hallucinations, paranoia. States the meth use worsened the depression and lead to suicidality. Denies current thoughts' of suicide, "I have too much to live for". Has been experiencing flash backs, intrusive memories of past trauma, nightmares, AH, paranoia, becoming angry and agitated. Denies AVH currently. Endorses anxiety daily, endorses trouble controlling the worry, physical symptoms- will feel shaky, endorses life long panic attack Patient's Status and Progress CC: "All these behaviors are because of my ADHD not my drug use" Progress towards goals: Patient refusing to having any type of drug induced psychosis but is med compliant. Will continue to stabilize. Review of Psychiatric Symptoms: Mood: depressed/anxious Suicide/self-harm: denies (guarded) Sleep: less than 3 hours per patient and confirmed with staff Appetite: adequate eating TID Energy: fatigued/low energy Anxiety: endorses high anxiety Irritability: fluctuates Homicidal/Anger: denies Hallucinations/Paranoia: denies Trauma symptoms: endorses nightmares Symptoms related to substance withdrawal: hypersomnia r/t withdrawing from meth Psychiatric Medications Side Effects: Denies No evidence of TD, EPS AIMs: 0 Appearnace: Disheveled Speech: Tangential, Pressured Eye Contact: Avoidant Motor Activity: Restless Affect: Labile Comments Congruent with mood Mood: Anxious, Depressed, Irritable Orientation Impairment: None Memory Impairment: None Attention: Normal Hallucinations: None Other: None Suicidality: Ideation Homicidality: None Delusions: None Behavior: Cooperative, Guarded, Hyperactive Insight: Poor Judgment: Poor Assessment Need for hospitalization: Present for further evaluation and treatment for PTSD, MDD, methamphetamine use disorder, tobacco use disorder. 5250: for danger to self, endorses suicidal ideation for the past three weeks, shared with ED clinician that she took a multitude of substances with aim to make all the thoughts and feelings go away. Reported to SW on 05/08 that she wanted to discharge hospital and return to meth use. Inpatient hospitalization is recommended to ensure safety, provide stabilization, and initiate intensive treatment with ongoing monitoring for SI. 05/11 Upon assessment today, patient is exhibiting increased daytime activity and engaging with everyone on the unit. Does not recall events from last night, disorganized thinking. Continues to endorses depression symptoms including poor energy, lack of motivation, interest. Complaint with medications. Continue to stabilize. Plan Diagnoses. PTSD MDD, recurrent, severe Methamphetamine use disorder Tobacco use disorder Suicidal Plan Continue clonidine 0.1 mg po TID prn for anxiety (consider scheduling med) Fluoxetine 40 mg po qd (consider increasing) Maintenance therapy for tobacco use disorder: schedule nicotine patch, prn nicotine lozenges Ativan 1mg - scheduled PRN Patient encouraged to engage in activities/therapy, precautions continued, emergency procedures, treatment options and side effects to medications reviewed. Continue Q15 min checks Continue Groups/Milieu Engagement Estimated length of stay: 7-10 days Discharge Plan: Back to current living situation- lives with an older couple Re-establish with psychiatric outpatient services- including therapy CODING VISIT-PSYCHIATRY Date of Service: May 11, 2025 Billing Provider: GERMAN ORANTES NP Psych Common Visit Codes: [id number] INP/OBS CARE(Mod) GERMAN ORANTES NP May 11, 2025 13:19
[2025-05-11 19:00] VITALS: RESP 18; O2SAT 99
[2025-05-11 20:00] VITALS: BP 134/85; PULSE 73; RESP 18; TEMP 97.8; O2SAT 99
[2025-05-11] MEDS: metoclopramide 5mg/5ml oral solution PO ONE (21:20)
[2025-05-12 07:00] VITALS: BP 87/46; PULSE 68; RESP 15; TEMP 97.6; O2SAT 94
[2025-05-12 10:17] VITALS: RESP 15; O2SAT 94
--- NOTE | 2025-05-12 17:31 | PROGRESS NOTE ---
Progress Note Dictate Providers to CC ~ Antibiotic Ordered?: N/A Objective Vitals Vital Signs Date Time Temp Pulse Resp B/P (MAP) Pulse Ox O2 Delivery O2 Flow Rate FiO2 05/12/25 10:17 15 94 Room Air 05/12/25 07:00 97.6 68 87/46 (60) 05/11/25 19:00 0.0 Lab Results: 05/09/251940 Psychiatrist's Progress Note Date of Service: May 12, 2025 Time of Evaluation: 15:00 Notes Admission information: Admitted on 5149 for danger to self endorsing thoughts of suicide, no specific plan, describes thoughts as intrusive and that she ingested, "what ever substances I could get" in attempt to make all the thoughts and feelings go away. Utox positive for methamphetamine, methadone, benzodiazepines, PCP, Barbiturates, THC. Engagement in high risk behaviors has been increasing in the past three weeks which was precipitated by attending her friends . Not future oriented, hopelessness and no motivation to seek support. Experiencing with auditory and visual hallucinations, paranoia. States the meth use worsened the depression and lead to suicidality. Denies current thoughts' of suicide, "I have too much to live for". Has been experiencing flash backs, intrusive memories of past trauma, nightmares, AH, paranoia, becoming angry and agitated. Denies AVH currently. Endorses anxiety daily, endorses trouble controlling the worry, physical symptoms- will feel shaky, endorses life long panic attack Patient's Status and Progress Patient's Status and Progress CC: "Ill stay a little bit longer to help myself" Progress towards goals: Patient refusing to having any treatment for substance abuse disorder or outpatient rehab. Continues to be compliant with medications and treatments. Will continue to stabilize. Review of Psychiatric Symptoms: Mood: depressed/anxious Suicide/self-harm: denies (guarded) Sleep: less than 3 hours per patient and confirmed with staff Appetite: adequate eating TID Energy: fatigued/low energy Anxiety: endorses high anxiety Irritability: fluctuates Homicidal/Anger: denies Hallucinations/Paranoia: denies Trauma symptoms: endorses nightmares Symptoms related to substance withdrawal: hypersomnia r/t withdrawing from meth Psychiatric Medications Side Effects: Denies No evidence of TD, EPS AIMs: 0 Appearnace: Disheveled Speech: Pressured Eye Contact: Normal Motor Activity: Restless Affect: Full Comments Mood congruent Mood: Anxious Orientation Impairment: None Memory Impairment: None Attention: Distracted Comments Intellect: average Hallucinations: None Other: None Suicidality: None Homicidality: None Delusions: None Behavior: Cooperative, Hyperactive Insight: Fair Judgment: Fair Assessment Need for hospitalization: Present for further evaluation and treatment for PTSD, MDD, methamphetamine use disorder, tobacco use disorder. 5250: for danger to self, endorses suicidal ideation for the past three weeks, shared with ED clinician that she took a multitude of substances with aim to make all the thoughts and feelings go away. Reported to on 05/08 that she wanted to discharge hospital and return to meth use. Inpatient hospitalization is recommended to ensure safety, provide stabilization, and initiate intensive treatment with ongoing monitoring for SI. 05/12 Upon assessment today, patient is exhibiting increased daytime activity and engaging with everyone on the unit. Patient is agreeable to stay voluntary (past hold). Patient had a better night last night, disorganized thinking improving. Continues to endorses depression symptoms including poor energy, lack of motivation, interest. Complaint with medications. Continue to stabilize. Plan Diagnoses. PTSD MDD, recurrent, severe Methamphetamine use disorder Tobacco use disorder Suicidal Plan Continue clonidine 0.1 mg po TID prn for anxiety (consider scheduling med) Fluoxetine 40 mg po qd (consider increasing) Maintenance therapy for tobacco use disorder: schedule nicotine patch, prn nicotine lozenges Ativan 1mg - scheduled PRN Patient encouraged to engage in activities/therapy, precautions continued, emergency procedures, treatment options and side effects to medications reviewed. Continue Q15 min checks Continue Groups/Milieu Engagement Estimated length of stay: 7-10 days Discharge Plan: Back to current living situation- lives with an older couple Re-establish with psychiatric outpatient services- including therapy CODING VISIT-PSYCHIATRY Date of Service: May 12, 2025 Billing Provider: GERMAN ORANTES NP Psych Common Visit Codes: [id number] INP/OBS CARE(Mod) GERMAN ORANTES NP May 12, 2025 17:31
[2025-05-12 19:00] VITALS: RESP 14; O2SAT 95
[2025-05-12 20:00] VITALS: BP 95/53; PULSE 86; RESP 14; TEMP 97.8; O2SAT 95
[2025-05-13 07:40] VITALS: RESP 12; O2SAT 94
[2025-05-13 07:42] VITALS: BP 101/52; PULSE 57; RESP 12; TEMP 98.7; O2SAT 94
[2025-05-13] MEDS ORDERED: FLUO40CA PO (11:26)
--- NOTE | 2025-05-13 11:46 | DISCHARGE SUMMARY ---
Discharge Summary Providers to CC ~ Discharge Summary Assessment . Admission Diagnosis: SI, MDD, Meth use Hospital Course DATE OF ADMISSION: 05/05 DATE OF DISCHARGE: 05/13 Hospital course is as follows, admitted on 5150 for danger to self endorsing thoughts of suicide, no specific plan, describes thougths as intrusive and that she ingested, "what ever substsances I could get" in attempt to to make all the thoughts and feeligns go away. Utox positive for multiple substances. Admission factors were reviewed during their hospitalization including PTSD, MDD, methamphetamine use disorder, tobacco use disorder based on symptoms of flashbacks, nightmares, panic, depression, suicidal ideation which was promoted and worsened by meth use. She was restarted fluoxetine and started on prazosin for PTSD nightmares and ativan PRN for anxiety and agitation. Mood and affect started to improve over the hospital course and has been denying SI/HI. Was able to contract for safety. Patient is at risk for worsening symptoms and we discussed a safety plan, emergency procedures, medication risks and SE were also discussed. Discharge Diagnosis\\Comment: PTSD MDD, recurrent, severe Methamphetamine use disorder Tobacco use disorder Suicidal Operations\\Procedures: None Consultants: None Complications: None Condition on DC: Stable 2 or more antipsychotic used: Yes 2/more antipsychotic addressed: Yes Does Patient smoke: Yes Smoking education given.: Yes Discharge Summary: Psychiatric Medications Side Effects: Denies No evidence of TD, EPS AIMs: 0 Appearnace: Groomed, showered, wearing clean clothes Speech: Normal Eye Contact: Normal Motor Activity: Relaxed Affect: Full Comments Mood congruent Mood: endorsed anxiety (manageable) Orientation Impairment: None Memory Impairment: None Attention: Intact as evidenced by conversation Comments Intellect: average Hallucinations: None Other: None Suicidality: Denies ideation, plan or intent Homicidality: Denies Delusions: None Behavior: Cooperative, Hyperactive Insight: Fair Judgment: Fair *Problems/Diagnosis: (1) Suicidal ideation Status: Resolved (2) MDD (major depressive disorder), recurrent episode, severe Status: Chronic (3) PTSD (post-traumatic stress disorder) Status: Chronic (4) Methamphetamine abuse Status: Acute Total Time Spent on D/C: > 30 Minutes Counseling Services Smoking & Tobacco Cessation: 3-10 Minutes CODING VISIT-PSYCHIATRY Date of Service: May 13, 2025 Billing Provider: GERMAN ORANTES NP Psych Common Visit Codes: [id number] DISCH DAY <30min GERMAN ORANTES NP May 13, 2025 11:40
[2025-05-13 12:28] VITALS: RESP 16
== END 2025-05-13 13:36 | disposition home or self-care (01) | DRG 882 ==
LOC: ER 20:35 → ADULT MH 05-06 22:45 → UNDOADMIN 05-06 22:45 → ADULT MH 05-07 01:51
PROVIDERS: ADMIT Psychiatry & Neurology Psychiatry; ATTEND Psychiatry & Neurology Psychiatry
PROC: GZHZZZZ Group Psychotherapy (ICD-10-PCS; principal; 2025-05-07)
DX: F43.10 Post-traumatic stress disorder, unspecified (principal); F33.3 Major depressive disorder, recurrent, severe with psychotic symptoms; F15.10 Other stimulant abuse, uncomplicated; I10 Essential (primary) hypertension; R45.851 Suicidal ideations; Z59.00 Homelessness unspecified; F17.210 Nicotine dependence, cigarettes, uncomplicated; E87.6 Hypokalemia; F41.0 Panic disorder [episodic paroxysmal anxiety]; Z20.822 Contact with and (suspected) exposure to COVID-19; F90.9 Attention-deficit hyperactivity disorder, unspecified type; G47.10 Hypersomnia, unspecified; K59.00 Constipation, unspecified; Z90.49 Acquired absence of other specified parts of digestive tract; Z90.710 Acquired absence of both cervix and uterus; Z88.2 Allergy status to sulfonamides; Z88.8 Allergy status to other drugs, medicaments and biological substances; Z88.5 Allergy status to narcotic agent; Z79.899 Other long term (current) drug therapy
CPT/HCPCS: 36415; 80053; 80061; 80305; 81001; 81003; 84439; 84443; 85025; 87081; 87811; 96372; 99285; A6250; J1630; J2250; J8597

== ENCOUNTER 2025-05-16 15:09 | Emergency (ER) | payer BC, MEDICAID ==
[~2025-05-16] VITALS: Ht 152.4 cm; Wt 84.4 kg
[~2025-05-16 15:09] MED LIST changes: -HYDR25TA5 PO; -LORA10TA7 PO
--- NOTE | 2025-05-16 15:32 | Physician Documentation ---
History of Present Illness ~ Chief Complaint: 5150 Stated Complaint: 5150 Time Seen by MD: 15:28 Primary Medical Doctor: Tello @ [facility] Nella Borrego [employer] Patient is sent to the emergency department via EMS for 5150 with a intent to harm herself. Patient does not clearly give a plan but states she has serious. Reported recent methamphetamine use. Known past medical psychological history. Medication Reconciliation Allergies: Coded Allergies: Sulfa (Sulfonamide Antibiotics) (Unverified Allergy, Unknown, 06/04/19) codeine (Unverified Allergy, Unknown, HIVES, 06/04/19) erythromycin base (Unverified Allergy, Unknown, 06/04/19) gabapentin (Verified Allergy, Unknown, 06/04/19) verified with daughter meperidine HCl (Unverified Allergy, Unknown, 06/04/19) naproxen (Unverified Allergy, Unknown, BREATHING PROBLEMS, 06/04/19) TOLERATES TORADOL risperidone (Verified Allergy, Unknown, 06/04/19) venlafaxine (Verified Allergy, Unknown, BREATHING, 06/04/19) aripiprazole (Verified Adverse Reaction, Unknown, HALLUCINATIONS, 05/07/25) diphenhydramine (Verified Adverse Reaction, Unknown, HALLUCINATIONS, 05/07/25) duloxetine (Verified Adverse Reaction, Unknown, HALLUCINATIONS, 05/07/25) pregabalin (Verified Adverse Reaction, Unknown, SUCICIDAL, 05/07/25) Uncoded Allergies: hydroxizine (Allergy, Mild, 06/22/23) hives and fever Scheduled Atorvastatin Calcium (Atorvastatin Calcium), 1 TAB PO DAILY, (Reported) Fluoxetine Hcl (Fluoxetine Hcl), 1 CAP PO DAILY Meloxicam (Meloxicam), 1 TAB PO DAILY, (Reported) Past Medical History Past Medical History: Hypertension, Arthritis, Eczema, *PSYCH* Past Surgical History: appendectomy, hysterectomy, tonsillectomy Patient History: FH: cancer Alcohol Use: None Drug Use: methamphetamine Lives In: Homeless Review of Systems All Other Systems at this time: Reviewed and Negative ROS See HPI Physical Exam Vital Signs: RN Vital Signs have been reviewed: Yes, Temperature: 98.0, Source: Temporal, Heart Rate: 90, Respiratory Rate: 16, BP: 159/105, Pulse Oximetry: 99, Weight: 84.400 Oxygen Flow Rate: 0 General Appearance: alert, WD/WN, other (Disheveled) EENT: PERRL/EOMI Head: normal inspection Neck: non-tender Respiratory: lungs clear Chest: no accessory muscle use Cardiovascular: normal peripheral pulses Gastrointestinal: normal palpation Extremities: non-tender Neurologic: oriented x4 Motor / Sensory: no motor deficit Cerebellar function exam: normal Appearance/Memory/Insight: disheveled Behavior/Eye contact/Speech: avoids eye contact Thought/Hallucinations: no apparent hallucination, delusions Affect: anxious Skin: warm/dry Lymphatic: no adenopathy Progress Results/Orders Results/Orders Orders - DANITZA NEVAREZ Med Rec (05/16/25 15:28) 1799.11 (05/16/25 15:28) Close Observation Level (05/16/25 15:28) Substance Use Navigator (05/16/25 15:28) Vital Signs 05/16/25 05/16/25 05/16/25 15:16 15:41 22:46 Temp 98.0 Pulse 90 87 Resp 16 16 16 B/P (MAP) 159/105 116/64 (81) Pulse Ox 99 98 O2 Flow Rate 0 0 Laboratory Tests Test 05/16/25 15:30 05/16/25 17:54 SARS-CoV-2 Antigen (Rapid) Negative Urine Specimen Description Non-specified Urine Color Yellow Urine Clarity Clear Urine pH 6.0 Urine Specific [place] 1.010 Urine Protein Negative Urine Glucose (UA) Negative Urine Ketones Negative Urine Occult Blood Trace-intact Urine Nitrite Negative Urine Bilirubin Negative Urine Urobilinogen 0.2 Urine Leukocyte Esterase Negative Urine RBC 0-2 Urine WBC None seen Urine Squamous Epithelial Cells Few Urine Bacteria None seen Volume Urine Centrifuged 10 ml Urine HCG, Qualitative Negative Urine Comment Urine Opiates Screen Negative Urine Methadone Screen Negative Urine Fentanyl Screen Negative Urine Barbiturates Screen Negative Urine Phencyclidine Screen Negative Urine Amphetamines Screen Positive Urine Benzodiazepines Screen Negative Urine Cocaine Screen Negative Urine Cannabinoids Screen Positive Drug Screen Comment Medical Decision Making Additional information obtaine: other Findings Patient arrived with obvious signs of psychosis that may be drug induced yet wit h intent to. Patient is redirectable and cooperative. Cleared for Mental Health. Screening labs obtained. Patient on 10/10 0 yet awaits mental health evaluation Differential Dx:Considerations: Include: Alcohol abuse, Anxiety, Bipolar disorder, Conversion disorder, Depression, Encephaloathy, Homicidal, Panic disorder, Personality disorder, Schizophrenia, Substance abuse, Suicidal, Other Departure Disposition: [facility] Impression: Primary Impression: Psychosis Qualified Codes: F29 - Unspecified psychosis not due to a substance or known physiological condition Additional Impression: Suicidal ideation Referrals: NO PRIMARY CARE PROVIDER (PCP) Signature Scribe Signature: . Attestation: . DANITZA NEVAREZ PAC May 16, 2025 15:32
[2025-05-16 18:18] LABS: LEUKOCYTE ESTERASE ,URINE NEGATIVE (Neg); NITRITES, URINE NEGATIVE (Neg); OCCULT BLOOD,URINE TRACE-INTACT (Neg); URINE HCG NEGATIVE (NEG)
[2025-05-16 18:20] LABS: UA COLLECTION TYPE NON-SPECIFIED
[2025-05-16 18:24] LABS: SQUAMOUS EPITHELIAL CELL,UR FEW /LPF (FEW)
[2025-05-16 18:26] LABS: URINE AMPHETAMINE SCREEN POSITIVE (Neg); URINE BARBITUATE SCREEN NEGATIVE (Neg); URINE BENZODIAZEPINES SCREEN NEGATIVE (Neg); URINE CANNABINOID SCREEN POSITIVE (Neg); URINE COCAINE SCREEN NEGATIVE (Neg); URINE METHADONE SCREEN NEGATIVE (Neg); URINE OPIATE SCREEN NEGATIVE (Neg); URINE PHENCYCLIDINE SCREEN NEGATIVE (Neg)
[2025-05-17] MEDS: ziprasidone IM 20mg inj **IM only IM ONE (04:11)
[2025-05-17] MEDS: diazepam inj 5 MG/ML inj. IM ONE (04:43)
[2025-05-17] MEDS: haloperidol lactate 5mg/ml inj IM ONE (04:43)
[2025-05-17 11:33] LABS: MEAN PLATELET VOLUME 8.2 FL (7.4-10.4); RED CELL DISTRIBUTION WIDTH 14.0 % (11.5-14.5)
[2025-05-17 11:54] LABS: CREATININE 0.86 MG/DL (0.40-0.90); ETHANOL < 10 MG/DL (<10); TOTAL CARBON DIOXIDE 30.8 MMOL/L (24-32); eCRCL 48 ML/MIN; eGFR 67 ML/MIN
[2025-05-17 12:11] VITALS: BP 128/78; PULSE 59; RESP 14; TEMP 98.1; O2SAT 98
[2025-05-18] MEDS ORDERED: MELOXICAM 7.5 MG TABLET PO SCH (08:00)
== END 2025-05-17 12:05 ==
LOC: ER 15:10
DX: F29 Unspecified psychosis not due to a substance or known physiological condition (principal); R45.851 Suicidal ideations; F15.90 Other stimulant use, unspecified, uncomplicated; I10 Essential (primary) hypertension; M19.90 Unspecified osteoarthritis, unspecified site; Z88.2 Allergy status to sulfonamides; Z88.5 Allergy status to narcotic agent; Z88.1 Allergy status to other antibiotic agents; Z88.6 Allergy status to analgesic agent; Z88.8 Allergy status to other drugs, medicaments and biological substances; Z90.710 Acquired absence of both cervix and uterus; Z90.49 Acquired absence of other specified parts of digestive tract; Z79.899 Other long term (current) drug therapy; Z59.00 Homelessness unspecified; Z20.822 Contact with and (suspected) exposure to COVID-19
CPT/HCPCS: 36415; 80048; 80305; 80320; 81001; 81025; 84443; 85025; 87811; 96372; 99285; J1630; J3360; J3486

== ENCOUNTER 2025-05-26 12:05 | Emergency (ER) | payer BC, MEDICAID ==
[~2025-05-26] VITALS: Ht 162.6 cm; Wt 75.0 kg
[~2025-05-26 12:05] MED LIST changes: -FLUO40CA PO
[2025-05-26 13:14] LABS: MEAN PLATELET VOLUME 7.9 FL (7.4-10.4); RED CELL DISTRIBUTION WIDTH 13.7 % (11.5-14.5)
[2025-05-26 13:38] LABS: CREATININE 0.90 MG/DL (0.40-0.90); TOTAL CARBON DIOXIDE 28.0 MMOL/L (24-32); eCRCL 55 ML/MIN; eGFR 63 ML/MIN
[2025-05-26 13:49] LABS: ETHANOL < 10 MG/DL (<10)
[2025-05-26] MEDS ORDERED: HYDR25TA5 PO (14:43)
[2025-05-26] MEDS ORDERED: FLUO-167 PO (14:43)
[2025-05-26] MEDS ORDERED: TRAZ-251 PO (14:43)
[2025-05-26] MEDS ORDERED: MIRT-87 PO (14:43)
[2025-05-26] MEDS ORDERED: BACL20TA PO (14:43)
[2025-05-26 14:56] LABS: LEUKOCYTE ESTERASE ,URINE NEGATIVE (Neg); NITRITES, URINE NEGATIVE (Neg); OCCULT BLOOD,URINE TRACE-INTACT (Neg); UA COLLECTION TYPE VOIDED
[2025-05-26 14:58] LABS: URINE HCG NEGATIVE (NEG)
[2025-05-26 15:02] LABS: MUCUS STRANDS NONE SEEN /LPF (Neg); SQUAMOUS EPITHELIAL CELL,UR FEW /LPF (FEW)
[2025-05-26 15:09] LABS: URINE AMPHETAMINE SCREEN NEGATIVE (Neg); URINE BARBITUATE SCREEN NEGATIVE (Neg); URINE BENZODIAZEPINES SCREEN NEGATIVE (Neg); URINE CANNABINOID SCREEN POSITIVE (Neg); URINE COCAINE SCREEN NEGATIVE (Neg); URINE METHADONE SCREEN NEGATIVE (Neg); URINE OPIATE SCREEN NEGATIVE (Neg); URINE PHENCYCLIDINE SCREEN NEGATIVE (Neg)
--- NOTE | 2025-05-26 15:25 | Physician Documentation ---
History of Present Illness ~ Chief Complaint: 5150 Stated Complaint: MENTAL HEALTH Time Seen by MD: 15:01 Primary Medical Doctor: JOSE ZABALA Mode of Arrival: Ambulatory HPI 64-year-old female sent in the emergency department by [facility] on a 5150 for acute psychosis is with the intent to harm herself. She has vague with her intent to how she may harm herself yet states that [employer] we will manage it for her. Her thoughts and conversation at times are scattered and difficult to follow up. He has no obvious trauma. Medication list reviewed. Medication Reconciliation Allergies: Coded Allergies: Sulfa (Sulfonamide Antibiotics) (Unverified Allergy, Unknown, 05/17/25) codeine (Unverified Allergy, Unknown, HIVES, 05/17/25) erythromycin base (Unverified Allergy, Unknown, 05/17/25) gabapentin (Verified Allergy, Unknown, 05/17/25) verified with daughter meperidine HCl (Unverified Allergy, Unknown, 05/17/25) naproxen (Unverified Allergy, Unknown, BREATHING PROBLEMS, 05/17/25) TOLERATES TORADOL risperidone (Verified Allergy, Unknown, 05/17/25) venlafaxine (Verified Allergy, Unknown, BREATHING, 05/17/25) aripiprazole (Verified Adverse Reaction, Unknown, HALLUCINATIONS, 05/17/25) diphenhydramine (Verified Adverse Reaction, Unknown, HALLUCINATIONS, 05/17/25) duloxetine (Verified Adverse Reaction, Unknown, HALLUCINATIONS, 05/17/25) pregabalin (Verified Adverse Reaction, Unknown, SUCICIDAL, 05/17/25) Uncoded Allergies: hydroxizine (Allergy, Mild, 06/22/23) hives and fever Scheduled Atorvastatin Calcium (Atorvastatin Calcium), 1 TAB PO DAILY, (Reported) Fluoxetine HCl (Fluoxetine HCl), 1 CAP PO QAM, (Reported) Hydrochlorothiazide (Hydrochlorothiazide), 1 TAB PO DAILY, (Reported) Meloxicam (Meloxicam), 1 TAB PO DAILY, (Reported) Mirtazapine (Mirtazapine), 0.5 TAB PO HS, (Reported) Scheduled PRN Baclofen (Baclofen), 0.5 TAB PO TID PRN for muscle spasm, (Reported) Trazodone HCl (Trazodone HCl), 1 TAB PO HS PRN for insomnia, (Reported) Past Medical History Past Medical History: Hypertension, Arthritis, Eczema, *PSYCH* Past Surgical History: appendectomy, hysterectomy, tonsillectomy Patient History: FH: cancer Alcohol Use: None Drug Use: methamphetamine Lives In: Homeless Review of Systems All Other Systems at this time: Reviewed and Negative ROS See HPI Psychiatric: Reports: see HPI Psychiatric Psychosis Physical Exam Vital Signs: Heart Rate: 97, Respiratory Rate: 18, BP: 129/84, Pulse Oximetry: 96, Weight: 75.000 Progress Results/Orders Results/Orders Orders - DANITZA NEVAREZ PAC Stat Ekg (05/26/25 ) Atorvastatin Tablet (Lipitor Tablet) (05/27/25 08:00) Hydrochlorothiazide Tablet (Hydrochlorot (05/27/25 08:00) Mirtazapine 15mg Tablet (Remeron Tablet) (05/26/25 21:00) Trazodone Tablet (Desyrel Tablet) (05/26/25 15:35) Baclofen Tablet (Lioresal Tablet) (05/26/25 15:35) Meloxicam 7.5 Mg Tablet (Meloxicam 7.5mg (05/27/25 08:00) Fluoxetine Capsule (Prozac Capsule) (05/27/25 08:00) Completed Orders - DANITZA NEVAREZ PAC Stat Ekg (05/26/25 ) Ondansetron Disint. Tablet (Zofran Odt T (05/26/25 16:15) Medications Received in ER Medications (Trade) Dose Ordered Sig/Venkata Route PRN Reason Start Time Stop Time Status Last Admin Dose Admin (Remeron tablet) 7.5 mg HS PO 05/26/25 21:00 05/26/25 20:16 7.5 MG Vital Signs 05/26/25 05/26/25 05/26/25 05/26/25 12:07 14:18 17:44 22:00 Temp 97.4 Pulse 97 63 Resp 15 18 18 20 B/P (MAP) 129/84 100/65 (77) Pulse Ox 96 94 Laboratory Tests Test 05/26/25 13:04 05/26/25 13:05 05/26/25 14:42 White Blood Count 8.6 Red Blood Count 4.15 L Hemoglobin 12.6 Hematocrit 37.7 Mean Corpuscular Volume 90.9 Mean Corpuscular Hemoglobin 30.3 Mean Corpuscular Hemoglobin Concent 33.3 Red Cell Distribution Width 13.7 Platelet Count 206 Mean Platelet Volume 7.9 Neutrophils (%) (Auto) 37.0 L Lymphocytes (%) (Auto) 50.0 Monocytes (%) (Auto) 6.9 Eosinophils (%) (Auto) 5.2 Basophils (%) (Auto) 0.9 Neutrophils # (Auto) 3.2 Lymphocytes # (Auto) 4.3 Monocytes # (Auto) 0.6 Eosinophils # (Auto) 0.5 Basophils # (Auto) 0.1 CBC Comment Sodium Level 144 Potassium Level 3.5 Chloride Level 108 H Carbon Dioxide Level 28.0 Anion Gap 8 Blood Urea Nitrogen 14 Creatinine 0.90 Estimated GFR/1.73 m2 63 BUN/Creatinine Ratio 15.6 Glucose Level 76 Calcium Level 8.6 Albumin 3.1 L Thyroid Stimulating Hormone (TSH) 1.41 Chemistry Comments Ethyl Alcohol Level < 10 Urine Specimen Description Voided Urine Color Yellow Urine Clarity Clear Urine pH 6.0 Urine Specific [place] 1.010 Urine Protein Negative Urine Glucose (UA) Negative Urine Ketones Negative Urine Occult Blood Trace-intact Urine Nitrite Negative Urine Bilirubin Negative Urine Urobilinogen 0.2 Urine Leukocyte Esterase Negative Urine RBC 0-2 Urine WBC None seen Urine Squamous Epithelial Cells Few Urine Bacteria None seen Urine Mucus None seen Volume Urine Centrifuged 10 ml Urine HCG, Qualitative Negative Urine Comment Urine Opiates Screen Negative Urine Methadone Screen Negative Urine Fentanyl Screen Negative Urine Barbiturates Screen Negative Urine Phencyclidine Screen Negative Urine Amphetamines Screen Negative Urine Benzodiazepines Screen Negative Urine Cocaine Screen Negative Urine Cannabinoids Screen Positive Drug Screen Comment Microbiology Date/Time Source Procedure Growth Status 05/26/25 14:00 Nasal Swab MRSA Screen - Preliminary Culture received. Resulted Medical Decision Making Additional information obtaine: old records Findings 64-year-old female with presentation and [address] [facility]. Med rec reviewed. Patient requires Zofran for nausea and vomiting. EKG obtained with QT lengthening. One time dose Zofran only. Physician to be consulted for further antiemetics. She rests comfortably in his medically cleared for behavioral health admission. A labs are reassuring not requiring intervention. Differential Dx:Considerations: Include: Alcohol abuse, Anxiety, Bipolar disord er, Conversion disorder, Depression, Encephaloathy, Homicidal, Panic disorder, Personality disorder, Schizophrenia, Substance abuse, Suicidal, Other Departure Impression: Primary Impression: Acute psychosis Referrals: NO PRIMARY CARE PROVIDER (PCP) Signature Scribe Signature: . Attestation: . DANITZA NEVAREZ PAC May 26, 2025 15:25
--- NOTE | 2025-05-26 15:37 | ELECTROCARDIOGRAPH REPORT ---
[facility] Test Date: 2025-05-26 Test Time: 15:34:33 Pat Name: KEZIA STARK Department: [facility]-ER Patient ID: [id number] Room: Gender: F Fire [employer]: : 1960 Requested By: DANITZA NEVAREZ Order Number: [id number] Reading MD: Dr. Oniel Otoole Measurements Intervals [place] Rate: 84 P: 70 [place]: 168 QRS: 71 QRSD: 139 T: 36 QT: 438 QTc: 518 Interpretive Statements Sinus rhythm Right bundle branch block Electronically Signed On 05-26-2025 18:06:[address] Oniel Otoole Please click the below link to view image of tracing.
[2025-05-26] MEDS: ondansetron 4mg rapidly disintigrating tab PO ONE (16:18)
[2025-05-27] MEDS: nicotine 7mg patch - 24hr TD ONE (08:04)
[2025-05-27] MEDS: MELOXICAM 7.5 MG TABLET PO SCH (10:30)
[2025-05-27] MEDS: magnesium hydroxide 30ml (MOM) UD suspension PO ONE (12:23)
[2025-05-27 13:00] VITALS: BP 110/69; PULSE 69; RESP 18; TEMP 97.4; O2SAT 94
== END 2025-05-27 13:08 ==
LOC: ER 12:06
DX: F23 Brief psychotic disorder (principal); I10 Essential (primary) hypertension; F15.90 Other stimulant use, unspecified, uncomplicated; M19.90 Unspecified osteoarthritis, unspecified site; Z88.2 Allergy status to sulfonamides; Z88.1 Allergy status to other antibiotic agents; Z88.6 Allergy status to analgesic agent; Z88.5 Allergy status to narcotic agent; Z88.8 Allergy status to other drugs, medicaments and biological substances; Z90.49 Acquired absence of other specified parts of digestive tract; Z90.710 Acquired absence of both cervix and uterus; Z79.899 Other long term (current) drug therapy; Z59.00 Homelessness unspecified
CPT/HCPCS: 36415; 80048; 80305; 80320; 81001; 81025; 84443; 85025; 87081; 93005; 99285